=== PATIENT | female | born 1970 | race Caucasian/White ===

== ENCOUNTER 2018-09-25 08:35 | Outpatient (CLI) | payer BC, SELFPAY ==
--- NOTE | 2018-09-25 08:32 | DI.RAD_ITS ---
SYMPTOM/DIAGNOSIS: RT KNEE PAIN RIGHT KNEE: The joint spaces are well maintained. There are no significant degenerative changes. The bones are normally mineralized. IMPRESSION: Negative right knee.
== END 2018-09-25 08:55 ==
PROVIDERS: PCP Nurse Practitioner Family; Visit Provider Physician Assistant
DX: M25.561 Pain in right knee (principal)
CPT/HCPCS: 73562

== ENCOUNTER 2020-05-17 01:16 | Outpatient (CLI) | payer OTHER, SELFPAY ==
--- NOTE | 2020-05-17 07:45 | DI.MAMMO_ITS ---
EXAM: MG MAMMO SCREENING CLINICAL HISTORY: screening,z12.39 TECHNIQUE: Bilateral full field digital CC and MLO mammographic images were obtained with 3D tomosyn thesis and utilizing computer aided detection (CAD). COMPARISON: Available for comparison. FINDINGS: Masses/Architectural Distortion: None seen. Microcalcifications: No suspicious pleomorphic-type are seen. Skin Thickening/Nipple Retraction: None. IMPRESSION: 1. No significant interval change with no specific features of malignancy noted. 2. Unless there is more urgent need, screening mammography is recommended, as per [employer] guidelines. BI-RADS Category 1 - Negative Breast Density - Category B - Scattered areas of fibroglandular density A negative radiographic report should not delay biopsy if a dominant or clinically suspicious mass is present. Up to ten percent of cancers are not identified on mammography. A negative report may reinforce clinical impression. Adenosis and dense breasts may obscure an underlying neoplasm. False positive reports average 6 to 10%. Patient will receive a letter notifying them of these results.
== END 2020-05-17 01:36 ==
PROVIDERS: PCP Student in an Organized Health Care Education/Training Program; Visit Provider Student in an Organized Health Care Education/Training Program
DX: Z12.31 Encounter for screening mammogram for malignant neoplasm of breast (principal)
CPT/HCPCS: 77063; 77067

== ENCOUNTER 2020-05-25 07:36 | Outpatient (CLI) | payer OTHER, SELFPAY ==
[2020-05-25 09:03] LABS: Anion Gap 7.1 mmol/L (3-11); BUN 18 mg/dL (7-18); CO2 28.9 mmol/L (21.0-32.0); CREATININE 0.79 mg/dL (0.55-1.02); Calcium 8.9 mg/dL (8.5-10.1); Calculated LDL 129 mg/dL (<100); Chloride 104 mmol/L (98-107); Cholesterol 203 mg/dL (<200); Glucose 101 mg/dL (74-106); HDL Cholesterol 63 mg/dL (40-60); Potassium 4.1 mmol/L (3.5-5.1); Sodium 140 mmol/L (136-145); Triglyceride 56 mg/dL (<150)
[2020-05-25 09:24] LABS: Vitamin D 25 Total 27.9 ng/ml (30-100)
== END 2020-05-25 07:56 ==
PROVIDERS: PCP Student in an Organized Health Care Education/Training Program; Visit Provider Student in an Organized Health Care Education/Training Program
DX: E78.5 Hyperlipidemia, unspecified (principal); E55.9 Vitamin D deficiency, unspecified; R63.5 Abnormal weight gain; E86.0 Dehydration; K21.9 Gastro-esophageal reflux disease without esophagitis; Z13.1 Encounter for screening for diabetes mellitus
CPT/HCPCS: 36415; 80048; 80061; 82306

== ENCOUNTER 2020-10-16 10:34 | Emergency (ER) | payer OTHER, SELFPAY ==
[2020-10-16 10:43] VITALS: BP 145/73; PULSE 63; RESP 16; TEMP 36.5; O2SAT 100
--- NOTE | 2020-10-16 11:30 | DI.US_ITS ---
EXAM: US UPPER EXTREMITY VENOUS RT CLINICAL HISTORY: Right hand swelling s/p IV, R/O thrombophlebitis. TECHNIQUE: Ultrasound examination of the right upper extremity venous system(s) is performed using g rayscale, color-flow, and spectral Doppler analysis. COMPARISON: No exams were available for comparison FINDINGS: The right internal jugular, axillary, subclavian, cephalic, basilic and brachial veins are patent wit hout evidence of thrombosis. Mild edema is seen in the dorsum of the hand but no focal fluid collect ion is seen. IMPRESSION: No DVT. DATA REPOSITORY:
--- NOTE | 2020-10-16 11:40 | ED.GENADUL_ITS ---
Discharge Plan Disposition Patient Disposition: HOME Condition: Stable Discharge Details Clinical Impression: Contusion of right hand Primary Care Provider: Maya Cuevas ED Provider: Beti Treviño Home Meds and New Rx's Prescriptions: No Action fluticasone propionate 50 mcg/actuation spray,suspension 2 spray SHANNAN DAILY Qty: 16 RF: 0 cod liver oil Oil 5 ml PO DAILY RF: 0 ibuprofen 200 MG capsule 200 mg PO PRN RF: 0 cholecalciferol (vitamin D3) 1,000 UNIT tablet 1,000 unit PO DAILY Qty: 90 RF: 3 Discharge Instructions Instructions: Contusion in Adults (ED) Additional Instructions: No evidence of thrombus, may have a little bit of a phlebitis or inflammation of the vein. Rest ice compression elevation. Follow up with primary care provider in 3-5 days. Return to ED sooner if any worsening or concerns. Increase oral fluids. Please take Tylenol or Ibuprofen with food every 4-6 hours as needed for pain and swelling. Stand Alone Forms: Work Release Referrals: Maya Cuevas DO [Primary Care Provider] - Discharge Data Discharge Date/Time-TO BE ENTERED AT DEPARTURE: 10/16/20 14:10 Medical Decision Making 49-year-old female presents the ER with chief complaint of right dorsal hand swelling, itching. Patient states that she had a colonoscopy procedure approximately a week ago and today had a hard time getting an IV to her right melo nd. At the time it was bruised today she noticed increased swelling and itching around the IV insertion site. She has no other pain or swelling reported to her right upper extremity. No other complaints at this time. At this time will order an ultrasound to rule out clot or thrombophlebitis of the right upper extremity, discussed potential for thrombophlebitis and treatment with patient who verbalized understanding. Will give aspirin here in the department and place an Hamilton wrap post ultrasound. CLINICAL HISTORY: Right hand swelling s/p IV, R/O thrombophlebitis. TECHNIQUE: Ultrasound examination of the right upper extremity venous system(s) is performed using grayscale, color-flow, and spectral Doppler analysis. COMPARISON: No exams were available for comparison FINDINGS: The right internal jugular, axillary, subclavian, cephalic, basilic and brachial veins are patent without evidence of thrombosis. Mild edema is seen in the dorsum of the hand but no focal fluid collection is seen. IMPRESSION: No DVT. Discussed results with patient who verbalized understanding. Hamilton wrap applied prior to discharge. Instructed on rest ice compression elevation and follow-up with PCP. HPI General Mode of arrival: ambulatory . Date/Time Provider Initiated Documentation: 10/16/20 11:01 . Limitations to Documentation: no limitations . Information obtained by: patient . HPI Narrative: 49-year-old female presents the ER with chief complaint of right dorsal hand swelling, itching. Patient states that she had a colonoscopy procedure approximately a week ago and today had a hard time getting an IV to her right hand. At the time it was bruised today she noticed increased swelling and itching around the IV insertion site. She has no other pain or swelling reported to her right upper extremity. No other complaints at this time. Related Data Home Medications Medication Instructions Recorded Confirmed ibuprofen 200 mg PO PRN 05/12/17 10/16/20 cholecalciferol (vitamin D3) 1,000 unit PO DAILY #90 tab-cap 12/18/17 10/16/20 fluticasone propionate 50 2 spray SHANNAN DAILY #16 gm 10/02/18 10/16/20 mcg/actuation nasal spray,suspension cod liver oil 5 ml PO DAILY 06/15/20 10/16/20 Previous Rx's Medication Instructions Recorded cholecalciferol (vitamin D3) 1,000 unit PO DAILY #90 tab-cap 12/18/17 fluticasone propionate 50 2 spray SHANNAN DAILY #16 gm 10/02/18 mcg/actuation nasal spray,suspension Allergies Allergy/AdvReac Type Severity Reaction Status Date / Time shellfish derived Allergy Intermediate shrimp - Verified 10/16/20 10:50 scrathing throat Sulfa (Sulfonamide Allergy Unknown rash Verified 10/16/20 10:50 Antibiotics) amoxicillin AdvReac Unknown Diarrhea Verified 10/16/20 11:11 General Stated Complaint: Orthopedic SHIMON: 3 Review of Systems All systems reviewed & are unremarkable except as noted in HPI and below Constitutional Constitutional: Denies fatigue, Denies fever(s) and Denies headache(s) ENT Ears, Nose, Mouth, and Throat: Denies headache(s) Cardiovascular Cardiovascular: Denies acrocyanosis, Denies chest pain, Denies chest pain at rest, Denies chest pain with activity and Denies dyspnea Respiratory Respiratory: Denies cough and Denies dyspnea Musculoskeletal Musculoskeletal: Reports tingling Comments: Right hand contusion and swelling post IV start denies any pain in the upper arm. Neurologic Neurologic: Denies headache(s) and Reports tingling Endocrine Endocrine: Denies fatigue [facility] Medical History (Updated 10/16/20 @ 13:59 by Beti Treviño) Allergic rhinitis Colon polyps Cyst of ovary (10/15/16) GERD (gastroesophageal reflux disease) Hx: recurrent pneumonia Hx PNA Vaccine, can she get another Vitamin D deficiency Family History Mother Diabetes Essential hypertension Congestive heart failure (CHF) Heart disease Triple bypass Hypercholesterolemia Neoplasm Colon dx'ed 62 y/o Breast CA Ovarian CA Uterine CA Thyroid disease Father Essential hypertension Heart disease Hypercholesterolemia Sister Myocardial infarction 44 y/o Thyroid disease Kidney failure Brother , [place] at age 36. Essential hypertension Myocardial infarction Social History Smoking/Tobacco Use Status: Never Smoking risk assessment performed?: Yes Alcohol Intake: current Alcohol Intake frequency: holidays/special occasions only Drug use: Never Substance use type: does not use Adopted: No Household members: significant other Housing: house Number of Children: 0 Communication Needs: Corrective Lenses Education Level: college Details: Masters current occupation: Work For [employer] through [employer] Do you think of yourself as: lesbian/ledezma/homosexual What is your relationship status?: living with partner How often do you talk on the phone with friends or family?: three or more times per week How often do you get together with friends or relatives?: three or more times per week How often do you attend voodoo or moravian services?: 1-3 times per year Do you belong to any clubs or organized social groups?: no Panel score (0-1 are the most socially isolated patients): 2 What type of physical activity do you participate in: walking Duration: 15-30 minutes/day Frequency: daily Radha/Anabaptism: Caodaism Seatbelt use: always Drive intox or ride w/intox trolley coach driver: No Working smoke detector in home: Yes Carbon monox detector in home: Yes Do you feel safe at home: Yes Do you feel safe in your relationship?: Yes Exam Narrative Exam Narrative: Constitutional: Alert and oriented x3. Appears stated age. Normal body habitus. Head: Normocephalic, no trauma. Chest: RRR, Normal S1, S2, distal pulses intact. Resp: Lungs clear to auscultation bilaterally, no wheezes, rales, or rhonchi. Musculoskeletal: Normal gait, 5/5 strength to all four extremities. Skin: Localized contusion and swelling noted to the right dorsum of her hand full range of motion. Radial pulses intact bilaterally. No evidence of swelling to her right upper extremity. Capillary refill less than 2 sec. Neurologic: Cranial nerves II-XII intact. Alert and oriented x 3. DTR's intact. Hematologic/Lymphatic: no lymphadenopathy. Course Vital Signs Vital signs: Vital Signs Temperature 36.5 C 10/16/20 10:43 Pulse 63 10/16/20 10:43 Respiratory Rate 16 10/16/20 10:43 Blood Pressure 145/73 H 10/16/20 10:43 Pulse Oximetry 100 10/16/20 10:43 Temperature 36.5 C 10/16/20 10:43 Temperature Source Skin 10/16/20 10:43 Pulse 63 10/16/20 10:43 Respiratory Rate 16 10/16/20 10:43 Respiratory Effort 10/16/20 10:52 Blood Pressure 145/73 H 10/16/20 10:43 Blood Pressure Position Sitting 10/16/20 10:43 Pulse Oximetry 100 10/16/20 10:43 Oxygen Delivery Method Room Air 10/16/20 10:43 Oxygen Flow Rate 0 10/16/20 10:43 Pain Level 0 10/16/20 10:43
[2020-10-16] MEDS: Aspirin 81 MG CHEW (12:12)
== END 2020-10-16 14:10 | disposition home or self-care (01) ==
PROVIDERS: Emergency Provider Registered Nurse Emergency; PCP Student in an Organized Health Care Education/Training Program
DX: S60.221A Contusion of right hand, initial encounter (principal); Y84.8 Other medical procedures as the cause of abnormal reaction of the patient, or of later complication, without mention of misadventure at the time of the procedure; Y82.8 Other medical devices associated with adverse incidents
CPT/HCPCS: 99284; 93971; 99282

== ENCOUNTER 2021-01-09 03:22 | Outpatient (CLI) | payer OTHER, SELFPAY ==
[2021-01-09 10:22] LABS: Calculated LDL 136 mg/dL (<100); Cholesterol 203 mg/dL (<200); HDL Cholesterol 56 mg/dL (40-60); Triglyceride 57 mg/dL (<150)
[2021-01-11 10:08] LABS: Vitamin D 25 Total 30.7 ng/mL (30-100)
== END 2021-01-09 03:23 | disposition home or self-care (01) ==
LOC: LBO 03:22
PROVIDERS: PCP Student in an Organized Health Care Education/Training Program; Visit Provider Student in an Organized Health Care Education/Training Program
DX: R63.5 Abnormal weight gain (principal); Z82.49 Family history of ischemic heart disease and other diseases of the circulatory system; E55.9 Vitamin D deficiency, unspecified
CPT/HCPCS: 36415; 80061; 82306

== ENCOUNTER 2021-11-02 01:46 | Outpatient (CLI) | payer OTHER, SELFPAY ==
[2021-11-02 08:30] LABS: HCT 41.8 % (36.0-46.0); HGB 13.4 g/dL (11.2-15.7); MCH 28.7 pg (27.0-33.0); MCHC 32.1 % (32.0-36.0); MCV 89.5 fL (80-95); MPV 10.6 fL (8.0-11.0); Platelet Count 179 10^3/uL (130-400); RBC 4.67 10^6/uL (3.93-5.22); RDW 11.8 % (11.7-14.6); RDW-SD 38.4 fL; WBC 6.07 10^3/uL (4.4-10.8)
[2021-11-02 09:42] LABS: Anion Gap 4.5 mmol/L (3-11); BUN 15 mg/dL (7-18); CO2 29.5 mmol/L (21.0-32.0); CREATININE 0.7 mg/dL (0.55-1.02); Calcium 8.6 mg/dL (8.5-10.1); Calculated LDL 140 mg/dL (<100); Chloride 104 mmol/L (98-107); Cholesterol 218 mg/dL (<200); Glucose 99 mg/dL (74-106); HDL Cholesterol 68 mg/dL (40-60); Potassium 4.1 mmol/L (3.5-5.1); Sodium 138 mmol/L (136-145); Triglyceride 53 mg/dL (<150)
[2021-11-05 06:03] LABS: Vitamin D 25 Total 35.6 ng/mL (30-100)
== END 2021-11-02 01:47 | disposition home or self-care (01) ==
LOC: LBO 01:46
PROVIDERS: PCP Student in an Organized Health Care Education/Training Program; Visit Provider Student in an Organized Health Care Education/Training Program
DX: E55.9 Vitamin D deficiency, unspecified (principal); R53.83 Other fatigue; R79.89 Other specified abnormal findings of blood chemistry; R23.2 Flushing; N92.4 Excessive bleeding in the premenopausal period; Z82.49 Family history of ischemic heart disease and other diseases of the circulatory system; Z13.220 Encounter for screening for lipoid disorders
CPT/HCPCS: 36415; 80048; 80061; 82306; 85027; 84443

== ENCOUNTER 2022-07-03 02:10 | Outpatient (CLI) | payer OTHER, SELFPAY ==
[2022-07-03 08:34] LABS: Hemoglobin A1C 5.4 % (<5.7)
[2022-07-03 09:33] LABS: Vitamin D 25 Total 46.2 ng/mL (30-100)
[2022-07-03 09:38] LABS: ALT 26 U/L (14-59); AST 20 U/L (15-37); Albumin 4.1 g/dL (3.4-5.0); Alkaline Phosphatase 94 U/L (46-116); BUN 13 mg/dL (7-18); CREATININE 0.7 mg/dL (0.55-1.02); Calcium 9.1 mg/dL (8.5-10.1); Calculated LDL 122 mg/dL (<100); Chloride 104 mmol/L (98-107); Cholesterol 194 mg/dL (<200); Estimated GFR 104.65 (mL/min/1.73m2); Glucose 106 mg/dL (74-106); HDL Cholesterol 61 mg/dL (40-60); Potassium 3.8 mmol/L (3.5-5.1); Sodium 141 mmol/L (136-145); TSH (W/Ref FT4) 3.21 uIU/mL (0.36-3.74); Total Protein 7.6 g/dL (6.4-8.2); Triglyceride 57 mg/dL (<150)
[2022-07-03 10:05] LABS: Bilirubin, Total 0.7 mg/dL (0.2-1.0)
== END 2022-07-03 02:11 | disposition home or self-care (01) ==
LOC: LBO 02:10
PROVIDERS: PCP Student in an Organized Health Care Education/Training Program; Visit Provider Student in an Organized Health Care Education/Training Program
DX: E07.9 Disorder of thyroid, unspecified (principal); R53.83 Other fatigue; R73.09 Other abnormal glucose; E55.9 Vitamin D deficiency, unspecified; E78.89 Other lipoprotein metabolism disorders; Z87.01 Personal history of pneumonia (recurrent)
CPT/HCPCS: 36415; 80053; 80061; 82306; 83036; 84443

== ENCOUNTER 2022-07-16 02:20 | Outpatient (CLI) | payer OTHER, SELFPAY | END 2022-07-16 02:40 | LOC: DI 02:20 | PROVIDERS: PCP Student in an Organized Health Care Education/Training Program; Visit Provider Student in an Organized Health Care Education/Training Program | DX: Z12.31 Encounter for screening mammogram for malignant neoplasm of breast (principal) | CPT/HCPCS: 77063; 77067 ==

== ENCOUNTER 2022-11-29 00:22 | Outpatient (CLI) | payer OTHER, SELFPAY ==
--- NOTE | 2022-11-29 07:39 | DI.DEXA_ITS ---
Exam(s) XR DEXA BONE DENSITY W/WO ROJELIO EXAM: XR DEXA BONE DENSITY W/WO ROJELIO CLINICAL HISTORY: evaluate bone density, due to clinical risk factors,VIT D DEFICIENCY, TECHNIQUE: COMPARISON: No exams were available for comparison FINDINGS: Lateral Spine Image: Unremarkable. No compression deformities identified. Left hip: Total T-Score: 0.4 Total Z-Score: 1.0 T- and Z-scores: Within normal limits. Lumbar Spine: Total T-Score: 0.0 Total Z-Score: 0.9 T- and Z-scores: Within normal limits. IMPRESSION: No evidence of osteoporosis.
== END 2022-11-29 00:42 ==
LOC: DI 00:22
PROVIDERS: PCP Student in an Organized Health Care Education/Training Program; Visit Provider Student in an Organized Health Care Education/Training Program
DX: Z13.820 Encounter for screening for osteoporosis (principal); E55.9 Vitamin D deficiency, unspecified
CPT/HCPCS: 77080

== ENCOUNTER 2023-03-10 13:41 | Outpatient (CLI) | payer OTHER, SELFPAY ==
[2023-03-10 13:17] LABS: Abs Immature Grans 0.02 10^3/uL (0.0-0.06); Absolute Basophil Count 0.06 10^3/uL (0.0-0.2); Absolute Eosinophil Count 0.08 10^3/uL (0.0-0.7); Absolute Monocyte Count 0.51 10^3/uL (0.1-0.8); Basophils % 0.8; Eosinophils % 1.1; HCT 40.7 % (36.0-46.0); HGB 13.3 g/dL (11.2-15.7); Immature Grans % 0.3; Lymphocytes % 18.4; MCH 28.5 pg (27.0-33.0); MCHC 32.7 % (32.0-36.0); MCV 87 fL (80-95); MPV 10.2 fL (8.0-11.0); Monocytes % 7.2; Neutrophils % 72.2; Platelet Count 214 10^3/uL (130-400); RBC 4.67 10^6/uL (3.93-5.22); RDW 12.2 % (11.7-14.6); RDW-SD 39.2 fL; WBC 7.07 10^3/uL (4.4-10.8)
[2023-03-10 14:04] LABS: ALT 38 U/L (14-59); AST 25 U/L (15-37); Albumin 3.7 g/dL (3.4-5.0); Alkaline Phosphatase 104 U/L (46-116); Anion Gap 5.2 mmol/L (3-11); BUN 12 mg/dL (7-18); Bilirubin, Total 0.7 mg/dL (0.2-1.0); CO2 29.8 mmol/L (21.0-32.0); CREATININE 0.7 mg/dL (0.55-1.02); Calcium 9.2 mg/dL (8.5-10.1); Chloride 105 mmol/L (98-107); Glucose 100 mg/dL (74-106); Potassium 3.8 mmol/L (3.5-5.1); Sodium 140 mmol/L (136-145); TSH (W/Ref FT4) 5.28 uIU/mL (0.36-3.74); Total Protein 7.4 g/dL (6.4-8.2); Vitamin B12 546 pg/mL (193-986)
[2023-03-10 14:36] LABS: C-Reactive Protein 0.19 mg/dL (0.0-0.3)
[2023-03-10 17:03] LABS: Vitamin D 25 Total 38.3 ng/mL (30-100)
[2023-03-10 21:36] LABS: Rheumatoid Factor <8.6 IU/mL (<12.0)
[2023-03-11 08:59] LABS: Cyclic Citrullinated Peptide <2.5 U/mL (<5.0)
[2023-03-11 10:58] LABS: Lyme Ab w Rflx to Lyme Confirm Negative (Negative)
[2023-03-11 14:28] LABS: ANA Interpretation Positive (Negative)
[2023-03-13 12:17] LABS: Anaplasma phagocytophilum Negative (Negative); B. miyamotoi PCR Negative (Negative); Babesia divergens/MO-1 Negative (Negative); Babesia duncani Negative (Negative); Babesia microti Negative (Negative); Ehrlichia chaffeensis Negative (Negative); Ehrlichia ewingii/canis Negative (Negative); Ehrlichia muris eauclairensis Negative (Negative)
== END 2023-03-10 13:42 | disposition home or self-care (01) ==
LOC: LBO 13:42
PROVIDERS: PCP Student in an Organized Health Care Education/Training Program; Visit Provider Nurse Practitioner
DX: E03.9 Hypothyroidism, unspecified (principal); R53.83 Other fatigue; R73.09 Other abnormal glucose; E55.9 Vitamin D deficiency, unspecified; R79.89 Other specified abnormal findings of blood chemistry; M25.50 Pain in unspecified joint; Z79.899 Other long term (current) drug therapy
CPT/HCPCS: 36415; 80053; 82306; 86200; 87798; 82607; 84439; 84443; 85025; 86038; 86140; 86431; 86618

== ENCOUNTER 2023-03-21 01:58 | Outpatient (CLI) | payer OTHER, SELFPAY ==
[2023-03-24 09:58] LABS: Thyroglobulin Antibody 468 U/mL (<=60); Thyroperoxidase Antibody >1300 U/mL (<=60)
[2023-03-25 13:18] LABS: dsDNA Ab, IgG <12.3 IU/mL (<30.0)
[2023-03-25 14:50] LABS: RNP Ab, IgG 1.3 Units (<20.0); SS-A Antibody 1.9 Units (<20.0); Sm (Smith) Ab, IgG 1.4 Units (<20.0)
== END 2023-03-21 01:59 | disposition home or self-care (01) ==
LOC: LBO 01:58
PROVIDERS: PCP Student in an Organized Health Care Education/Training Program; Visit Provider Nurse Practitioner
DX: R79.89 Other specified abnormal findings of blood chemistry (principal); Z83.49 Family history of other endocrine, nutritional and metabolic diseases; R52 Pain, unspecified; R53.83 Other fatigue; R76.8 Other specified abnormal immunological findings in serum
CPT/HCPCS: 36415; 86376; 86225; 86235

== ENCOUNTER 2023-04-25 04:31 | Outpatient (CLI) | payer OTHER, SELFPAY ==
[2023-04-25 09:04] LABS: Hemoglobin A1C 5.6 % (<5.7)
[2023-04-25 09:44] LABS: TSH (W/Ref FT4) 5.56 uIU/mL (0.36-3.74)
[2023-04-25 18:27] LABS: T3,Free 3.4 pg/mL (2.8-5.3)
== END 2023-04-25 04:32 | disposition home or self-care (01) ==
LOC: LBO 04:31
PROVIDERS: PCP Student in an Organized Health Care Education/Training Program; Referring Provider Student in an Organized Health Care Education/Training Program; Visit Provider Student in an Organized Health Care Education/Training Program
DX: E03.9 Hypothyroidism, unspecified (principal); R73.09 Other abnormal glucose; R79.89 Other specified abnormal findings of blood chemistry
CPT/HCPCS: 36415; 83036; 84439; 84443; 84481

== ENCOUNTER 2023-07-16 04:51 | Outpatient (CLI) | payer OTHER, SELFPAY ==
[2023-07-16 08:43] LABS: HCT 40.4 % (36.0-46.0); HGB 13.2 g/dL (11.2-15.7); MCH 28.5 pg (27.0-33.0); MCHC 32.7 % (32.0-36.0); MCV 87 fL (80-95); MPV 10.6 fL (8.0-11.0); Platelet Count 204 10^3/uL (130-400); RBC 4.63 10^6/uL (3.93-5.22); RDW 12.1 % (11.7-14.6); RDW-SD 38.8 fL; WBC 6.22 10^3/uL (4.4-10.8)
[2023-07-16 09:08] LABS: ALT 32 U/L (14-59); AST 17 U/L (15-37); Albumin 3.8 g/dL (3.4-5.0); Alkaline Phosphatase 94 U/L (46-116); Anion Gap 6.4 mmol/L (3-11); BUN 11 mg/dL (7-18); Bilirubin, Total 0.9 mg/dL (0.2-1.0); CO2 29.6 mmol/L (21.0-32.0); CREATININE 0.8 mg/dL (0.55-1.02); Calcium 9.3 mg/dL (8.5-10.1); Calculated LDL 140 mg/dL (<100); Chloride 105 mmol/L (98-107); Cholesterol 217 mg/dL (<200); Glucose 110 mg/dL (74-106); HDL Cholesterol 66 mg/dL (40-60); Potassium 3.8 mmol/L (3.5-5.1); Sodium 141 mmol/L (136-145); TSH (W/Ref FT4) 5.51 uIU/mL (0.36-3.74); Total Protein 7.4 g/dL (6.4-8.2); Triglyceride 57 mg/dL (<150)
[2023-07-16 09:24] LABS: FREE T4 0.77 ng/dL (0.76-1.46)
[2023-07-19 23:26] LABS: Lab Add On Test DONE
[2023-07-19 23:41] LABS: Hemoglobin A1C 5.5 % (<5.7)
[2023-07-19 23:42] LABS: Lab Add On Test DONE
[2023-07-20 19:05] LABS: T3,Free 3.7 pg/mL (2.8-5.3)
== END 2023-07-16 04:52 | disposition home or self-care (01) ==
LOC: LBO 04:51
PROVIDERS: PCP Student in an Organized Health Care Education/Training Program; Visit Provider Student in an Organized Health Care Education/Training Program
DX: R79.89 Other specified abnormal findings of blood chemistry (principal); E03.8 Other specified hypothyroidism; E06.3 Autoimmune thyroiditis; Z13.220 Encounter for screening for lipoid disorders; Z91.89 Other specified personal risk factors, not elsewhere classified
CPT/HCPCS: 36415; 80053; 80061; 85027; 83036; 84439; 84443; 84481

== ENCOUNTER → 2023-07-30 01:50 | Outpatient (CLI) | payer OTHER, SELFPAY | PROVIDERS: PCP Student in an Organized Health Care Education/Training Program; Visit Provider Student in an Organized Health Care Education/Training Program | DX: Z12.31 Encounter for screening mammogram for malignant neoplasm of breast (principal) | CPT/HCPCS: 77063; 77067 ==

== ENCOUNTER → 2023-09-24 03:17 | Outpatient (CLI) | payer OTHER, SELFPAY ==
--- NOTE | 2023-09-24 12:13 | DI.RAD_ITS ---
Exam(s) XR FOOT RT COMPLETE EXAM: XR FOOT RT COMPLETE CLINICAL HISTORY: rt foot pain,plantar fascial fibromatosis, m72.2,m79.671. TECHNIQUE: 2D digital imaging was performed of the right foot. Three images were obtained. AP, obl ique and lateral views were obtained. COMPARISON: No exams were available for comparison FINDINGS: BONES: No acute fracture is present. No bony destructive lesion is seen. JOINTS: No dislocation present. SOFT TISSUE: Normal. IMPRESSION: Unremarkable radiographs of the right foot. If there is concern for plantar fascial injury or mass, a n MRI is recommended for further evaluation. DATA REPOSITORY: RADIATION DOSE DELIVERED:
== END ==
PROVIDERS: PCP Student in an Organized Health Care Education/Training Program; Visit Provider Podiatrist
DX: M79.671 Pain in right foot (principal); M72.2 Plantar fascial fibromatosis
CPT/HCPCS: 73630

== ENCOUNTER 2023-09-24 13:41 | Outpatient (CLI) | payer OTHER, SELFPAY ==
[2023-09-24 13:59] LABS: Abs Immature Grans 0.03 10^3/uL (0.0-0.06); Absolute Basophil Count 0.07 10^3/uL (0.0-0.2); Absolute Eosinophil Count 0.08 10^3/uL (0.0-0.7); Absolute Monocyte Count 0.53 10^3/uL (0.1-0.8); Absolute Neutrophil Count 5.64 10^3/uL (1.2-6.7); Basophils % 0.9; HCT 38.8 % (36.0-46.0); Immature Grans % 0.4; Lymphocytes % 21.1; MCH 28.6 pg (27.0-33.0); MCHC 33.5 % (32.0-36.0); MCV 86 fL (80-95); MPV 10.2 fL (8.0-11.0); Monocytes % 6.6; Platelet Count 227 10^3/uL (130-400); RBC 4.54 10^6/uL (3.93-5.22); RDW-SD 37.6 fL; WBC 8.05 10^3/uL (4.4-10.8)
[2023-09-24 15:18] LABS: C-Reactive Protein < 0.50 mg/dL (<or=0.5)
== END 2023-09-24 13:42 | disposition home or self-care (01) ==
LOC: LBO 13:41
PROVIDERS: PCP Student in an Organized Health Care Education/Training Program; Visit Provider Podiatrist
DX: E79.0 Hyperuricemia without signs of inflammatory arthritis and tophaceous disease (principal); M10.9 Gout, unspecified
CPT/HCPCS: 36415; 84550; 85025; 86140

== ENCOUNTER 2023-10-13 05:55 | Outpatient (CLI) | payer OTHER, SELFPAY ==
[2023-10-13 08:22] LABS: Abs Immature Grans 0.01 10^3/uL (0.0-0.06); Absolute Basophil Count 0.07 10^3/uL (0.0-0.2); Absolute Eosinophil Count 0.06 10^3/uL (0.0-0.7); Absolute Lymphocyte Count 1.21 10^3/uL (1.2-3.4); Absolute Monocyte Count 0.42 10^3/uL (0.1-0.8); Basophils % 1.1; Eosinophils % 0.9; HCT 39.5 % (36.0-46.0); HGB 13.3 g/dL (11.2-15.7); Immature Grans % 0.2; MCH 29.3 pg (27.0-33.0); MCHC 33.7 % (32.0-36.0); MCV 87 fL (80-95); MPV 10.3 fL (8.0-11.0); Monocytes % 6.6; Neutrophils % 72.2; Platelet Count 203 10^3/uL (130-400); RBC 4.54 10^6/uL (3.93-5.22); RDW-SD 38.5 fL; WBC 6.37 10^3/uL (4.4-10.8)
[2023-10-13 08:54] LABS: Hemoglobin A1C 5.5 % (<5.7)
[2023-10-13 08:57] LABS: Vitamin D 25 Total 44.3 ng/mL (30-100)
[2023-10-13 09:02] LABS: Iron 47 ug/dL (50-170); Total Iron Binding Capacity 301 ug/dL (250-450); Transferrin Sat 16 % (15-50)
[2023-10-13 09:07] LABS: ALT 35 U/L (14-59); AST 19 U/L (15-37); Albumin 3.8 g/dL (3.4-5.0); Alkaline Phosphatase 90 U/L (46-116); Anion Gap 6.4 mmol/L (3-11); BUN 14 mg/dL (7-18); Bilirubin, Total 0.6 mg/dL (0.2-1.0); CO2 29.6 mmol/L (21.0-32.0); CREATININE 0.7 mg/dL (0.55-1.02); Calcium 9.1 mg/dL (8.5-10.1); Calculated LDL 150 mg/dL (<100); Chloride 106 mmol/L (98-107); Cholesterol 224 mg/dL (<200); Ferritin 136 ng/mL (8-252); Folate 4.9 ng/mL (8.6-20.0); Glucose 101 mg/dL (74-106); HDL Cholesterol 62 mg/dL (40-60); Magnesium 1.7 mg/dL (1.8-2.4); Potassium 3.8 mmol/L (3.5-5.1); Sodium 142 mmol/L (136-145); TSH 2.96 uIU/Ml (0.36-3.74); Total Protein 7.3 g/dL (6.4-8.2); Triglyceride 64 mg/dL (<150); Vitamin B12 499 pg/mL (193-986)
[2023-10-13 09:24] LABS: FREE T4 0.85 ng/dL (0.76-1.46)
[2023-10-13 18:09] LABS: T3,Free 3.8 pg/mL (2.8-5.3)
[2023-10-13 18:56] LABS: Homocysteine 11.1 umol/L (5.0-13.9)
[2023-10-13 19:24] LABS: Thyroglobulin Antibody 352 U/mL (<=60); Thyroperoxidase Antibody 498 U/mL (<=60)
[2023-10-14 22:01] LABS: Zinc, S 68 mcg/dL (60-106)
[2023-10-15 08:39] LABS: Lipoprotein (a) 70 nmol/L (<75)
[2023-10-15 10:15] LABS: DHEA Sulfate 35 ug/dL (56-283)
[2023-10-16 09:33] LABS: Apolipoprotein A1, S 154 mg/dL (>=140); Apolipoprotein B, S 94 mg/dL (See Comment); Apolipoprotein B/A 1 ratio 0.6 (See Comment)
== END 2023-10-13 05:56 | disposition home or self-care (01) ==
PROVIDERS: Naturopath; PCP Student in an Organized Health Care Education/Training Program; Visit Provider Student in an Organized Health Care Education/Training Program
DX: E78.5 Hyperlipidemia, unspecified (principal); E03.8 Other specified hypothyroidism; G25.81 Restless legs syndrome; E55.9 Vitamin D deficiency, unspecified; L60.9 Nail disorder, unspecified
CPT/HCPCS: 36415; 80053; 80061; 82172; 82306; 82627; 83090; 83695; 84630; 86376; 82607; 82728; 82746; 83036; 83540; 83550; 83735; 84439; 84443; 84481; 85025

== ENCOUNTER 2024-03-18 03:37 | Outpatient (CLI) | payer OTHER, SELFPAY ==
[2024-03-18 11:52] LABS: Calculated LDL 134 mg/dL (<100); Cholesterol 215 mg/dL (<200); HDL Cholesterol 71 mg/dL (40-60); Magnesium 1.8 mg/dL (1.8-2.4); TSH 3.58 uIU/Ml (0.36-3.74); Triglyceride 51 mg/dL (<150); Vitamin B12 965 pg/mL (193-986); Vitamin D 25 Total 45.9 ng/mL (30-100)
[2024-03-18 12:15] LABS: Folate > 20.0 ng/mL (8.6-20.0)
[2024-03-18 12:31] LABS: FREE T4 0.82 ng/dL (0.76-1.46)
[2024-03-18 12:40] LABS: Hemoglobin A1C 5.4 % (<5.7)
[2024-03-18 15:19] LABS: Uric Acid 3.3 mg/dL (2.6-6.0)
[2024-03-18 21:42] LABS: T3,Free 3.2 pg/mL (2.8-5.3)
[2024-03-19 09:58] LABS: DHEA Sulfate 88 ug/dL (56-283)
[2024-03-19 11:56] LABS: Homocysteine 9.4 umol/L (5.0-13.9)
[2024-03-20 10:55] LABS: Zinc, S 76 mcg/dL (60-106)
[2024-03-21 13:48] LABS: Apolipoprotein A1, S 166 mg/dL (>=140); Apolipoprotein B, S 106 mg/dL (See Comment); Apolipoprotein B/A 1 ratio 0.6 (See Comment)
== END 2024-03-18 03:38 | disposition home or self-care (01) ==
LOC: LBO 03:38
PROVIDERS: Podiatrist; PCP Student in an Organized Health Care Education/Training Program; Visit Provider Naturopath
DX: E79.0 Hyperuricemia without signs of inflammatory arthritis and tophaceous disease (principal)
CPT/HCPCS: 36415; 80061; 82172; 82306; 82627; 83090; 84630; 82607; 82746; 83036; 83735; 84439; 84443; 84481; 84550

== ENCOUNTER 2024-07-16 01:28 | Outpatient (CLI) | payer OTHER, SELFPAY ==
[2024-07-16 09:26] LABS: Iron 54 ug/dL (50-170); Total Iron Binding Capacity 306 ug/dL (250-450); Transferrin Sat 18 % (15-50)
[2024-07-16 09:34] LABS: ALT 40 U/L (14-59); AST 24 U/L (15-37); Albumin 3.7 g/dL (3.4-5.0); Alkaline Phosphatase 109 U/L (46-116); Anion Gap 5.9 mmol/L (3-11); BUN 11 mg/dL (7-18); Bilirubin, Total 0.68 mg/dL (0.2-1.0); CO2 31.1 mmol/L (21.0-32.0); CREATININE 0.7 mg/dL (0.55-1.02); Calcium 9.1 mg/dL (8.5-10.1); Calculated LDL 134 mg/dL (<100); Chloride 106 mmol/L (98-107); Cholesterol 213 mg/dL (<200); Estimated GFR 103.35 (mL/min/1.73m2); Ferritin 75 ng/mL (8-252); Glucose 97 mg/dL (74-106); HDL Cholesterol 69 mg/dL (40-60); Magnesium 1.8 mg/dL (1.8-2.4); Potassium 3.6 mmol/L (3.5-5.1); Sodium 143 mmol/L (136-145); TSH (W/Ref FT4) 3.62 uIU/mL (0.36-3.74); Total Protein 7.3 g/dL (6.4-8.2); Triglyceride 51 mg/dL (<150)
== END 2024-07-16 01:29 | disposition home or self-care (01) ==
PROVIDERS: PCP Nurse Practitioner Family; Visit Provider Student in an Organized Health Care Education/Training Program
DX: Z13.220 Encounter for screening for lipoid disorders (principal); E03.9 Hypothyroidism, unspecified; E34.9 Endocrine disorder, unspecified; Z82.49 Family history of ischemic heart disease and other diseases of the circulatory system; Z91.89 Other specified personal risk factors, not elsewhere classified; Z13.0 Encounter for screening for diseases of the blood and blood-forming organs and certain disorders involving the immune mechanism; Z86.2 Personal history of diseases of the blood and blood-forming organs and certain disorders involving the immune mechanism; E61.1 Iron deficiency; R79.0 Abnormal level of blood mineral
CPT/HCPCS: 36415; 80053; 80061; 82728; 83540; 83550; 83735; 84443; 85018

== ENCOUNTER 2024-09-07 02:35 | Outpatient (CLI) | payer OTHER, SELFPAY ==
[2024-09-07 09:24] LABS: TSH (W/Ref FT4) 3.61 uIU/mL (0.36-3.74)
[2024-09-14 09:12] LABS: Apolipoprotein B, Serum 98 mg/dL (48-124); Beta VLDL Cholesterol Not Detected mg/dL (<15); Beta VLDL Triglycerides Not Detected mg/dL (<15); Cholesterol, Total, CDC 216 mg/dL; Chylomicron Cholesterol Not Detected; Chylomicron Triglycerides Not Detected; HDL Cholesterol, CDC 53 mg/dL (>=50); LDL Cholesterol 136 mg/dL; LDL Triglycerides 32 mg/dL (<=50); Lp(a) Cholesterol 13 mg/dL (<5); LpX Not detected; Triglycerides, CDC 74 mg/dL; VLDL Cholesterol 14 mg/dL (<30); VLDL Triglycerides 23 mg/dL (<120)
== END 2024-09-07 02:36 | disposition home or self-care (01) ==
PROVIDERS: PCP Nurse Practitioner Family; Visit Provider Nurse Practitioner Family
DX: E78.9 Disorder of lipoprotein metabolism, unspecified (principal); E78.5 Hyperlipidemia, unspecified; Z82.49 Family history of ischemic heart disease and other diseases of the circulatory system; R79.89 Other specified abnormal findings of blood chemistry
CPT/HCPCS: 36415; 80061; 82172; 82664; 84443

== ENCOUNTER 2024-09-08 02:52 | Outpatient (CLI) | payer OTHER, SELFPAY ==
--- NOTE | 2024-09-08 07:04 | DI.MAMMO_ITS ---
Exam(s) MAMMO SCREENING EXAM: MAMMO SCREENING CLINICAL HISTORY: screening,Z12.39 TECHNIQUE: Mammograms were interpreted according to the usual protocol including computer analysis w [employer] CAD system, tomosynthesis and C-view imaging. COMPARISON: 2017 through 2023 FINDINGS: The breasts are composed of scattered fibroglandular densities, Breast Density category B. No suspicious masses or suspicious microcalcifications are seen. No skin thickening or abnormal axillary lymph nodes are seen. There has been no significant change from prior exams. IMPRESSION: BI-RADS Category 1, Negative mammogram Yearly screening mammography is recommended. Breast Density - Category B, scattered fibroglandular densities. A negative radiographic report should not delay biopsy if a dominant or clinically suspicious mass is present. Up to ten percent of cancers are not identified on mammography. A negative report may reinforce clinical impression. Adenosis and dense breasts may obscure an underlying neoplasm. False positive reports average 6 to 10%. Patient will receive a letter notifying them of these results.
== END 2024-09-08 03:12 ==
LOC: DI 02:52
PROVIDERS: PCP Nurse Practitioner Family; Visit Provider Nurse Practitioner Family
DX: Z12.31 Encounter for screening mammogram for malignant neoplasm of breast (principal); R92.323 Mammographic fibroglandular density, bilateral breasts
CPT/HCPCS: 77063; 77067

== ENCOUNTER 2024-09-13 10:54 | Outpatient (CLI) | payer OTHER, SELFPAY | END 2024-09-13 10:55 | disposition home or self-care (01) | LOC: CARDOPNVT 10:54 | PROVIDERS: PCP Nurse Practitioner Family; Visit Provider Nurse Practitioner Family | DX: R00.2 Palpitations (principal) | CPT/HCPCS: 93246 ==

== ENCOUNTER 2024-10-01 08:50 | Outpatient (CLI) | payer OTHER, SELFPAY ==
--- NOTE | 2024-10-01 09:33 | W.CARDEVENT ---
Date of service: 10/01/24 Time of Service: 09:33 Cardiac Event Recorder Referring Provider:: Dana Hernández Indications:: Palpitations Cardiac Event Note: This is a cardiac event monitor. Patient was monitored for 10 days and 5 hours. Rhythm throughout was sinus with an average heart rate of 68. Minimum was 41, maximum 138. There were rare isolated atrial and ventricular ectopic beats. There was no atrial fibrillation, no high-grade AV block, no pauses greater than 2 seconds. Reported symptoms correlated with sinus rhythm and with an isolated atrial premature beat
== END 2024-10-01 08:51 | disposition home or self-care (01) ==
LOC: CARDOPNVT 08:50
PROVIDERS: PCP Nurse Practitioner Family; Visit Provider Internal Medicine Cardiovascular Disease
DX: R00.2 Palpitations (principal)
CPT/HCPCS: 93248; 93246

== ENCOUNTER 2025-01-13 02:37 | Outpatient (CLI) | payer OTHER, SELFPAY ==
[2025-01-13 10:47] LABS: TSH (W/Ref FT4) 4.51 uIU/mL (0.36-3.74)
== END 2025-01-13 02:38 | disposition home or self-care (01) ==
LOC: LBO 02:37
PROVIDERS: PCP Nurse Practitioner Family; Visit Provider Nurse Practitioner Family
DX: R79.89 Other specified abnormal findings of blood chemistry (principal)
CPT/HCPCS: 36415; 84439; 84443

== ENCOUNTER 2025-03-18 08:55 | Outpatient (CLI) | payer OTHER, SELFPAY ==
[2025-03-18 09:45] LABS: TSH (W/Ref FT4) 3.67 uIU/mL (0.36-3.74)
== END 2025-03-18 08:56 | disposition home or self-care (01) ==
LOC: LBO 08:55
PROVIDERS: PCP Nurse Practitioner Family; Visit Provider Nurse Practitioner Family
DX: R79.89 Other specified abnormal findings of blood chemistry (principal); Z51.81 Encounter for therapeutic drug level monitoring
CPT/HCPCS: 36415; 84443

== ENCOUNTER 2025-05-11 02:02 | Outpatient (CLI) | payer OTHER, SELFPAY ==
[2025-05-11 12:59] LABS: TSH (W/Ref FT4) 2.28 uIU/mL (0.36-3.74)
== END 2025-05-11 02:03 | disposition home or self-care (01) ==
LOC: LBO 02:02
PROVIDERS: PCP Nurse Practitioner Family; Visit Provider Nurse Practitioner Family
DX: R79.89 Other specified abnormal findings of blood chemistry (principal); E03.8 Other specified hypothyroidism; E06.3 Autoimmune thyroiditis
CPT/HCPCS: 36415; 84443